=== PATIENT | female | born 1985 | race Caucasian/White ===

== ENCOUNTER → 2017-04-20 | Outpatient (CLI) | payer BC ==
[~2017-04-20] MED LIST: CYAN10005 PO; DTR5 PO; ERGO1CAP35 PO; FLV1 PO; LORA-741 PO; MTR800 PO; OMEP20CA9 PO
[2017-04-23 01:11] LABS: CHLAMYDIA TRACH RNA*** NOT DETECTED (NOT DETECTED); GC (NEIS GONORRHOEAE)RNA** NOT DETECTED (NOT DETECTED)
== END | disposition home or self-care (01) ==
LOC: C.LABSPEC 13:30
PROVIDERS: ATTEND Physician Assistant
DX: Z30.430 Encounter for insertion of intrauterine contraceptive device (principal); Z30.9 Encounter for contraceptive management, unspecified

== ENCOUNTER → 2017-04-20 | Outpatient (CLI) | payer BC ==
[2017-04-20 10:00] LABS: PREG INTERNAL POSITIVE QC POS CONTROL LINE
[2017-04-20 10:01] LABS: PREG INTERNAL NEGATIVE QC NEG CLEAR BACKGROUND
== END | disposition home or self-care (01) ==
LOC: C.LAB 09:16
PROVIDERS: ATTEND Physician Assistant
DX: Z30.09 Encounter for other general counseling and advice on contraception (principal)